=== PATIENT | male | born 2000 | race Caucasian/White ===

== ENCOUNTER 2023-09-05 19:29 | Emergency (ER) | payer OTHER, SELFPAY ==
[2023-09-05] VITALS (14 sets, daily range): BP systolic 130–147; BP diastolic 68–90; PULSE 90–125; RESP 14–18; TEMP 37.9; O2SAT 97–100
--- NOTE | ~2023-09-05 | US_ITS ---
EXAMINATION: US venous doppler [facility] DATE: 09/05/2023 20:21 INDICATION: Prior left lower limb deep venous thrombosis presenting with back pain and tachycardia. TECHNIQUE: Grayscale ultrasound images without and with compression and Doppler ultrasound images of the left lower extremity veins were obtained. COMPARISON: None. FINDINGS: The visualized portions of left common femoral vein, profunda (deep) femoral vein, femoral vein, popl iteal vein, peroneal veins, posterior tibial veins, gastrocnemius vein and greater saphenous vein out flow are patent. IMPRESSION: 1. No deep venous thrombosis in the left lower limb. Reviewed, dictated and finalized at location A. RDS TECH
--- NOTE | ~2023-09-05 | CT_ITS ---
EXAMINATION: CTA chest PE protocol DATE: 09/05/2023 21:27 INDICATION: Back pain and tachycardia TECHNIQUE: Computed tomography (CT) pulmonary angiogram of the chest was performed with 100 mL Omnipa que-350 intravenous contrast. Additional 3D reconstructions utilizing coronal maximum intensity proje ction (MIP) were performed. Automated exposure control and iterative reconstruction technique were em ployed. The dose-length product was 379.39 mGy-cm. COMPARISON: None FINDINGS: . contrast opacification of the pulmonary arteries. There is mild streak artifact from dense contrast in the superior vena cava and right atrium. No significant respiratory motion living diagnostic qual ity study which demonstrates no pulmonary embolism. Lungs are clear with no pneumonia, pulmonary arnold a, pleural effusion or pneumothorax. Heart size is normal. No pericardial effusion. Thoracic aorta is normal in caliber with no dissection. No pathologically enlarged thoracic lymphadenopathy. Normal va riant accessory left hepatic artery arising from the left gastric artery. Visualized upper abdomen is otherwise unremarkable. Mild thoracic dextrocurvature. Likely physiologic chronic appearing mild ant erior wedging at T11 and T12. IMPRESSION: 1. No pulmonary embolism or other acute cardiopulmonary disease. Reviewed, dictated and finalized at location A. 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
[2023-09-05] MEDS: ACETAMINOPHEN 500 MG TABLET 1000 MG PO (20:49)
[2023-09-05] MEDS: SODIUM CHLORIDE 0.9% IV 1,000 ML 999 ML IV CONT ×2 (20:50→22:10)
[2023-09-05 20:56] LABS: Basophils Percent Auto 0.3 % (0.2-1.2); Eosinophils Percent Auto 0.1 % (0-4.4); Hematocrit 44.3 % (42.0-52.0); Hemoglobin 14.7 g/dL (14.0-18.0); Immature Granulocyte Absolute 0.03 K/mm3 (0.00-0.031); Immature Granulocyte Percent A 0.4 % (0-0.5); Immature Platelet Fraction Pct 2.4 % (0.9-11.2); Lymphocytes Absolute Auto 1.23 K/mm3 (0.9-3.2); Lymphocytes Percent Auto 15.4 % (18.3-44.2); Mean Corpuscular HGB Conc 33.2 g/dl (32-36); Mean Corpuscular Hemoglobin 30.4 pg (26-34); Mean Corpuscular Volume 91.5 fl (80-100); Mean Platelet Volume 9.6 fl (7.4-10.4); Monocytes Absolute Auto 0.8 K/mm3 (0.1-0.6); Neutrophils Absolute Auto 5.9 K/mm3 (1.3-6.7); Neutrophils Percent Auto 73.8 % (45.5-73.1); Platelet Count Result 122 k/mm3 (150-375); Red Blood Count 4.84 M/mm3 (4.6-6.20); Red Cell Distribution Width 11.6 % (11.5-14.5)
--- NOTE | 2023-09-05 20:56 | ECG_ITS ---
Measurements Intervals [place] Rate: 107 P: 83 WA: 155 QRS: 64 QRSD: 78 T: 53 QT: 314 QTc: 421 Interpretive Statements SINUS TACHYCARDIA CANNOT RULE OUT SEPTAL INFARCT, AGE INDETERMINATE NONSPECIFIC T-WAVE ABNORMALITY- INF/HIGH LAT LEADS BASELINE ARTIFACT- I, AVR, AVL, V4-V6 ABNORMAL ECG NO PREVIOUS ECG AVAILABLE FOR COMPARISON Electronically Signed On 09-06-2023 6:13:48 [employer] by Zander Gamino D.O.
--- NOTE | 2023-09-05 20:56 | ED.GENADULT ---
HPI - General Adult General Chief complaint: Unspecified Stated complaint: Sent from urgent care, Possible DVT, back pain Time Seen by Provider: 09/05/23 20:10 Source: patient Mode of arrival: ambulatory Limitations: no limitations History of Present Illness HPI narrative: This is a 23 year old male that presents to the ER for right sided back pain. Present over the last 3 days. Reports the pain is constant. Worse with movement. Pain radiates into his right arm. He has been taking Ibuprofen with some relief. Pain is worse with deep breathing. Reports mild sore throat and rhinorrhea. Noted to be febrile in the ED. Reports recent travel and history of DVT.Denies shortness of breath or lower extremity edema. Related Data Allergies Allergy/AdvReac Type Severity Reaction Status Date / Time No Known Allergies Allergy Mild Unverified 08/02/09 19:20 Review of Systems Review of Systems: CONSTITUTIONAL: Reports fever ENT: Reports rhinorrhea, sore throat CARDIOVASCULAR: Denies chest pain, edema. RESPIRATORY: Denies dyspnea. SKIN: Denies rash MUSCULOSKELETAL: Reports back pain, joint pain, and myalgia. All systems reviewed & are unremarkable except as noted in HPI and below PMFSH Past Medical History Medical History (Updated 09/05/23 @ 23:14 by Gaviota Carias PA-C) No active medical problems Social History Social History (Updated 09/05/23 @ 21:05 by Gaviota Carias PA-C) Smoking status: Never smoker Exam Narrative: GENERAL: Well-appearing, well-nourished, and in no acute distress. HEAD: Normocephalic, atraumatic. EYES: EOMI. ENT: Nares clear, no rhinorrhea or epistaxis. Mucous membranes moist. Oropharynx without tonsillar hypertrophy exudate or other lesions. Bilateral TMs pearly lara non-bulging NECK: Supple. No adenopathy or masses. CHEST: Clear to auscultation. No respiratory distress. No wheezes rales or rhonchi HEART: Regular rate and rhythm. No murmur heard. Normal peripheral pulses. EXTREMITIES: Normal range of motion. No edema. SKIN: Warm, dry, no rash. NEURO: No focal deficits. Alert and oriented x3. PSYCH: Normal mood and affect Course Course Emergency Course: Patient and family updated on work-up and agree with plan of care Vital Signs Vital signs: Vital Signs Temperature 100.3 F H 09/05/23 19:40 Pulse Rate 125 H 09/05/23 19:40 Respiratory Rate 14 09/05/23 19:40 Blood Pressure 147/90 H 09/05/23 19:40 Pulse Oximetry 100 09/05/23 19:40 Oxygen Delivery Room Air 09/05/23 19:40 Temperature 100.3 F H 09/05/23 19:40 Pulse Rate 90 09/05/23 22:16 Respiratory Rate 18 09/05/23 22:16 Blood Pressure 140/68 09/05/23 22:46 Pulse Oximetry 97 09/05/23 22:46 Oxygen Delivery Room Air 09/05/23 19:40 Medical Decision Making MDM Narrative Medical decision making narrative: Patient presents to the emergency department for back pain ongoing over the last couple of days. Also reporting some viral symptoms. Tachycardic and febrile upon arrival. Heart rate normalized with IV fluid hydration. Patient given antipyretics. CBC is without leukocytosis. Metabolic panel without concerning findings. Lactic acid is not elevated. Influenza and COVID screens are negative. EKG without concerning changes and baseline troponin is negative. Due to patient's history of DVT, left lower extremity venous Doppler obtained. No evidence of DVT. CTA chest is without evidence of PE or other acute cardiopulmonary abnormality. Patient and family were updated on work-up. Instructed on further care of viral infection. He is to follow-up with primary care provider. He was given warnings to return to the ER Vital Signs Vital Signs: Vital Signs Temperature 100.3 F H 09/05/23 19:40 Pulse Rate 125 H 09/05/23 19:40 Respiratory Rate 14 09/05/23 19:40 Blood Pressure 147/90 H 09/05/23 19:40 Pulse Oximetry 100 09/05/23 19:40 Oxygen Delivery Room Air 09/05/23 19:40
[2023-09-05 21:07] LABS: Alanine Aminotransferase 20 U/L (6-50); Albumin Level 4.7 g/dL (3.5-5.1); Alkaline Phosphatase 75 U/L (38-126); Anion Gap 13 mmol/L (8-16); Aspartate Amino Transferase 24 U/L (17-59); Bilirubin,Total 1.3 mg/dL (0.2-1.3); Blood Urea Nitrogen 14 mg/dL (9-20); CRP 4.5 mg/dL (<1.0); Calcium 9.6 mg/dL (8.4-10.2); Carbon Dioxide 25 mmol/L (22-30); Chloride 100 mmol/L (98-107); Estimated CRCL calculation 84 ml/min; Estimated Glomerular Filt Rate > 60; Glucose 106 mg/dL (65-110); Potassium 3.9 mmol/L (3.4-5.0); Prothrombin Time 13.3 Seconds (11.1-14.7); Sodium 138 mmol/L (137-145)
[2023-09-05 21:08] LABS: Partial Thromboplastin Time 29.8 SECONDS (22.3-36.8)
[2023-09-05 21:20] LABS: Creatine Kinase 80 U/L (55-170)
[2023-09-05 21:33] LABS: Troponin I < 0.012 ng/mL (0.000-0.034)
[2023-09-05 21:48] LABS: Erythrocyte Sedimentation Rate 14 mm/hr (0-20)
[2023-09-05 22:06] LABS: Lactic Acid Reflex 0.6 mmol/L (0.7-2.0)
[2023-09-05] MEDS: KETOROLAC 15 MG/ML VIAL (*BKC) IV PUSH (22:10)
[2023-09-05 22:45] LABS: Influenza A QL RT-PCR Negative (Negative); Influenza B QL RT-PCR Negative (Negative); SARS-CoV-2 RNA PCR Negative (Negative)
== END 2023-09-05 23:25 | disposition home or self-care (01) ==
PROVIDERS: Emergency Provider Physician Assistant
DX: B34.9 Viral infection, unspecified (principal); Z20.822 Contact with and (suspected) exposure to COVID-19; Z86.718 Personal history of other venous thrombosis and embolism; R00.0 Tachycardia, unspecified; R94.31 Abnormal electrocardiogram [ECG] [EKG]
CPT/HCPCS: 36415; 71275; 80053; 82550; 83605; 84484; 85025; 85055; 85610; 85652; 85730; 86140; 87636; 93005; 93971; 96361; 96374; 99284; A9270; J1885; J7030; Q9967